=== PATIENT | male | born 1970 | race Hispanic/Latino ===

== ENCOUNTER 2020-05-30 20:01 | Emergency (ER) | payer OTHER ==
[2020-05-30] MEDS ORDERED: LIDOCAINE 5% TOPICAL PATCH TP ONE (20:41)
[2020-05-30] MEDS ORDERED: ORPHENADRINE CITRATE 30 MG/ML ML ONE (20:41)
[2020-05-30] MEDS ORDERED: KETOROLAC TROMETHAMINE 60 MG/2 ML VIAL ONE (20:41)
[2020-05-30] MEDS ORDERED: HYDROCODONE/ACETAMINOPHEN 10/325 MG TAB ONE (20:42)
== END 2020-05-30 20:57 | disposition home or self-care (01) ==
LOC: EDH 20:01
DX: M54.5 Low back pain (principal); M62.830 Muscle spasm of back; M54.30 Sciatica, unspecified side; I10 Essential (primary) hypertension
CPT/HCPCS: 96372 ×2; 99284; J1885; J2360